=== PATIENT | female | born 1980 | race Caucasian/White ===

== ENCOUNTER → 2021-08-05 | Outpatient (CLI) | payer OTHER ==
--- NOTE | 2021-08-05 14:40 | Diagnostic Imaging Report ---
PROCEDURE: Pelvic comp/transvaginal sonogram. TECHNIQUE: Complete transabdominal and transvaginal pelvic ultrasound was performed. In addition, limited pelvic Doppler was performed. INDICATION: Abnormal uterine bleeding. Uterus is anteverted measuring 9.4 x 5.3 x 6.1 cm. Endometrium is 9 mm in thickness. There is some endometrial heterogeneity with some mild blood flow present but no discrete mass is detected. The right ovary measures 4.4 x 2.5 x 2.8 cm and left ovary measures 3.1 x 2.1 x 2.5 cm. Right ovary does contain a 2.8 cm cyst. Left ovary contains a 1.6 cm cyst. There is blood flow to both ovaries. No adnexal mass or free fluid is seen. IMPRESSION: 1. Mildly heterogeneous and thickened endometrium. 2. Bilateral ovarian cysts. Dictated by: Dictated on workstation # [id number]
== END ==
LOC: RAD 11:40
PROVIDERS: ATTEND Obstetrics & Gynecology
DX: N83.202 Unspecified ovarian cyst, left side (principal); N83.201 Unspecified ovarian cyst, right side; R93.89 Abnormal findings on diagnostic imaging of other specified body structures
CPT/HCPCS: 76830; 76856

== ENCOUNTER 2021-08-25 05:37 | Outpatient (CLI) | payer OTHER ==
[~2021-08-25] VITALS: Ht 157.5 cm; Wt 95.5 kg
[2021-08-26] MEDS ORDERED: ATOR20TA66 PO (12:50)
[2021-08-26] MEDS ORDERED: FURO20TA4 PO (12:50)
[2021-08-26] MEDS ORDERED: LEVO25CA4 PO (12:50)
[2021-08-26] MEDS ORDERED: LISI10TA25 PO (12:50)
[2021-08-26] MEDS ORDERED: IVAB5TAB PO (12:50)
[2021-08-26] MEDS ORDERED: FAMO20TA3 PO (12:50)
== END 2021-08-26 13:00 | disposition home or self-care (01) ==
LOC: PREOP 05:37
PROVIDERS: ATTEND Obstetrics & Gynecology
DX: Z01.818 Encounter for other preprocedural examination (principal)

== ENCOUNTER 2021-09-01 07:15 | Day surgery (SDC) | payer OTHER ==
[2021-09-01] VITALS (10 sets, daily range): BP systolic 104–122; BP diastolic 63–78
[~2021-09-01] VITALS: Ht 157.5 cm; Wt 95.5 kg
[~2021-09-01 07:15] MED LIST: ATOR20TA66 PO; FAMO20TA3 PO; FURO20TA4 PO; IVAB5TAB PO; LEVO25CA4 PO; LISI10TA25 PO
[2021-09-01] MEDS ORDERED: BUPIVACAINE 0.25% 30 ML (SENSORCAINE) VIAL ONE (07:25)
[2021-09-01] MEDS ORDERED: SEVOFLURANE (ULTANE) 15 ML INHAL SOLN ONE ×2 (07:53→09:02)
[2021-09-01] MEDS ORDERED: ONDANSETRON 4 MG/2 ML (SDV) Z0FRAN ONE (07:53)
[2021-09-01] MEDS ORDERED: proPOfol 200 MG/20 ML (DIPRIVAN) VIAL IV ONE (07:53)
[2021-09-01] MEDS ORDERED: MIDAZOLAM 2 MG/2 ML (VERSED) VIAL ONE (07:53)
[2021-09-01] MEDS ORDERED: fentaNYL INJ 100 MCG/2 ML AMP ONE (07:53)
[2021-09-01] MEDS ORDERED: LIDOCAINE PF 2% 5 ML (XYLOCAINE) VIAL ONE (07:53)
[2021-09-01] MEDS: LACTATED RINGERS 1,000 ML IV PRN ×2 (08:15→08:57)
[2021-09-01 08:30] LABS: BASOPHILS # (AUTO) 0.1 10^3/uL (0.0-0.1); BASOPHILS % (AUTO) 1 % (0-10); EOSINOPHILS # (AUTO) 0.2 10^3/uL (0.0-0.3); EOSINOPHILS % (AUTO) 3 % (0-10); HEMATOCRIT 37 % (35-52); HEMOGLOBIN 12.4 g/dL (11.5-16.0); LYMPHOCYTES # (AUTO) 2.1 10^3/uL (1.0-4.0); LYMPHOCYTES % (AUTO) 29 % (12-44); MEAN CORPUSCULAR HEMOGLOBIN 28 pg (25-34); MEAN CORPUSCULAR HGB CONC 33 g/dL (32-36); MEAN CORPUSCULAR VOLUME 85 fL (80-99); MEAN PLATELET VOLUME 9.4 fL (9.0-12.2); MONOCYTES # (AUTO) 0.7 10^3/uL (0.0-1.0); MONOCYTES % (AUTO) 9 % (0-12); NEUTROPHILS # (AUTO) 4.2 10^3/uL (1.8-7.8); NEUTROPHILS % (AUTO) 58 % (42-75); PLATELET COUNT 298 10^3/uL (130-400); WHITE BLOOD COUNT 7.2 10^3/uL (4.3-11.0)
--- NOTE | 2021-09-01 08:50 | Progress Note-Pre Operative ---
Pre-Operative Progress Note H&P Reviewed The H&P was reviewed, patient examined and no changes noted. Date Seen by Provider: Sep 01, 2021 Time Seen by Provider: 08:35 Date H&P Reviewed: Sep 01, 2021 Time H&P Reviewed: 08:35 Pre-Operative Diagnosis: AUB, Thickened Endometrium BAY LOVELL DO Sep 01, 2021 08:50
--- NOTE | 2021-09-01 08:51 | Discharge Inst-Women's Service ---
Discharge Inst-Women's Serv Depart Medication/Instructions New, Converted or Re-Newed RX: Transmitted to Pharmacy Problems Reviewed?: Yes Consults/Follow Up Additional Follow Up: Yes Orders/Referrals Dr. Lovell in 7-10 days Activity Activity: Activity as Tolerated Driving Instructions: No Driving for 1 Week NO SMOKING: NO SMOKING Nothing Inside Vagina: No Douching, No [place], No Tampons Diet Discharge Diet: No Restrictions Symptoms to Report to : Bleeding Excessive, Pain Increased, Fever Over 101 Degrees F, Vaginal Bleeding Increase, Questions/Concerns For Any Problems or Questions: Contact Your Physician BAY LOVELL DO Sep 01, 2021 08:51
[2021-09-01] MEDS ORDERED: ACHD5005 PO (08:52)
[2021-09-01] MEDS ORDERED: IBUP-1773 PO (08:52)
[2021-09-01] MEDS ORDERED: ONDANSETRON 4 MG/2 ML (SDV) Z0FRAN IVP PRN ×2 (09:00→09:15)
[2021-09-01] MEDS ORDERED: D5 LR IV SOLUTION 1,000 ML IV SCH (09:00)
[2021-09-01] MEDS ORDERED: KETOROLAC 30 MG/ML VIAL IVP ONE (09:00)
[2021-09-01] MEDS ORDERED: HYDROcodone/APAP 5 MG/325 MG (LORTAB) TAB PO PRN (09:00)
[2021-09-01] MEDS ORDERED: KETOROLAC 30 MG/ML VIAL IVP PRN (09:00)
--- NOTE | 2021-09-01 09:12 | Anesthesia-General Post-Op ---
General Patient Condition Mental Status/LOC: Same as Preop Cardiovascular: Satisfactory Nausea/Vomiting: Absent Respiratory: Satisfactory Pain: Controlled Complications: Absent Post Op Complications Complications None Follow Up Care/Instructions Patient Instructions None needed. Anesthesia/Patient Condition Patient Condition Patient is doing well, no complaints, stable vital signs, no apparent adverse anesthesia problems. No complications reported per nursing. MARCUS OLSON CRNA Sep 01, 2021 09:12
[2021-09-01] MEDS ORDERED: morphine INJ 10 MG/ML 1ML (SYR OR VIAL) IVP ONE (09:15)
[2021-09-01] MEDS ORDERED: MEPERIDINE (DEMEROL) INJ 50 MG/ML IVP ONE (09:15)
[2021-09-01] MEDS ORDERED: fentaNYL INJ 100 MCG/2 ML AMP IVP ONE (09:15)
--- NOTE | 2021-09-01 16:09 | OPERATIVE REPORT ---
DATE OF SERVICE: PREOPERATIVE DIAGNOSES: 1. A 41-year-old female with abnormal uterine bleeding. 2. Thickened endometrium on ultrasound. POSTOPERATIVE DIAGNOSES: 1. A 41-year-old female with abnormal uterine bleeding. 2. Thickened endometrium on ultrasound. PROCEDURE: D and C. SURGEON: Bay Lovell DO ANESTHESIA: LMA general. ESTIMATED BLOOD LOSS: Minimal. URINE OUTPUT: 200 mL clear drained at start of the procedure. FLUIDS: 1000 mL lactated Ringer's solution. FINDINGS: Grossly normal appearing external female genitalia. A copious amount of endometrial tissue. SPECIMEN SENT: Endometrial curettings. INDICATIONS FOR PROCEDURE: This 40-year-old female consulted to me for a thickened endometrium and heavy periods that she has been having. I discussed with the patient need for endometrial sampling due to her body habitus and age greater than 40. Risks of the procedure were discussed with the patient in detail. After all of her questions were answered, consent was obtained in the preoperative area, the patient was taken to the operating room. OPERATIVE REPORT IN DETAIL: Once in the operating room, anesthesia was found to be adequate, placed in dorsal lithotomy position, prepped and draped in normal sterile fashion. Timeout was performed. A weighted speculum inserted into the patient's vagina. Straight catheterization was performed. A right angle retractor was utilized. Cervix was grasped at 12 o'clock position using a long Allis clamp. I then performed paracervical block at 3 and 9 o'clock positions on the cervix. Care was taken to aspirate for injecting 5 mL of 0.25% Marcaine injected into each site. I then gently sounded the uterine cavity that was found to be approximately 9 cm. I then gently dilated the cervix using Hanks dilators; maximum dilatation approximately 1 cm, at which point I performed a methodical curettage throughout the entire endometrial cavity collecting all the endometrial tissue and sending as endometrial curettings. After gentle uterine cry is appreciated on all surfaces, I removed all the instruments from the patient's vagina. Bleeding is not noted from the cervix. The patient tolerated the procedure well and sent to recovery area in stable condition. Lap and sponge counts were correct at the end of the procedure. Instrument counts correct as well. Job ID: [id number] DocumentID: [id number] Dictated Date: 09/01/2021 09:31:43 Agricultural Consultant Date: 09/01/2021 16:08:15 Dictated By: BAY LOVELL DO
== END 2021-09-01 11:25 | disposition home or self-care (01) ==
LOC: SDC 07:15
PROVIDERS: ATTEND Obstetrics & Gynecology
DX: N84.0 Polyp of corpus uteri (principal); I10 Essential (primary) hypertension; E02 Subclinical iodine-deficiency hypothyroidism; I48.91 Unspecified atrial fibrillation; E66.9 Obesity, unspecified; Z68.38 Body mass index [BMI] 38.0-38.9, adult; Z79.899 Other long term (current) drug therapy; Z79.890 Hormone replacement therapy; Z98.51 Tubal ligation status
CPT/HCPCS: 36415; 84703; 85025; 86850; 86900; 86901; 87081; 88305

== ENCOUNTER 2022-01-28 05:33 | Outpatient (CLI) | payer OTHER ==
[~2022-01-28] VITALS: Ht 157.5 cm; Wt 90.0 kg
[~2022-01-28 05:33] MED LIST changes: +ACHD5005 PO; +IBUP-1773 PO
[2022-01-28] MEDS ORDERED: MULT-974 PO (12:05)
[2022-01-28] MEDS ORDERED: CETI10CA PO (12:05)
== END 2022-01-28 12:15 | disposition home or self-care (01) ==
LOC: PREOP 05:33
PROVIDERS: ATTEND Obstetrics & Gynecology
DX: Z01.818 Encounter for other preprocedural examination (principal)

== ENCOUNTER 2022-02-02 05:49 | Day surgery (SDC) | payer OTHER ==
[~2022-02-02] VITALS: Ht 157 cm; Wt 90.0 kg
[2022-02-02] VITALS (12 sets, daily range): BP systolic 105–147; BP diastolic 55–95
[~2022-02-02 05:49] MED LIST changes: +CETI10CA PO; +MULT-974 PO
[2022-02-02] MEDS ORDERED: metroNIDAZOLE 500MG/100ML IVPB 100 ML IV ONE (06:15)
[2022-02-02] MEDS ORDERED: ceFAZolin 2 GM IV Premixed 50 ML IV ONE (06:15)
[2022-02-02] MEDS ORDERED: BUPIVACAINE 0.25% 10 ML (SENSORCAINE) VIAL ONE (06:45)
[2022-02-02] MEDS ORDERED: SEVOFLURANE (ULTANE) 15 ML INHAL SOLN ONE (06:50)
[2022-02-02] MEDS ORDERED: proPOfol 200 MG/20 ML (DIPRIVAN) VIAL IV ONE (06:50)
[2022-02-02] MEDS ORDERED: ROCURONIUM 50 MG/5 ML (ZEMURON) VIAL IV ONE (06:50)
[2022-02-02] MEDS ORDERED: LIDOCAINE PF 2% 5 ML (XYLOCAINE) VIAL ONE (06:50)
[2022-02-02] MEDS ORDERED: ONDANSETRON 4 MG/2 ML (SDV) Z0FRAN ONE (06:50)
[2022-02-02] MEDS ORDERED: fentaNYL INJ 100 MCG/2 ML AMP ONE (06:51)
[2022-02-02] MEDS ORDERED: MIDAZOLAM 2 MG/2 ML (VERSED) VIAL ONE (06:51)
[2022-02-02 06:57] LABS: HEMOGLOBIN 13.6 g/dL (11.5-16.0); LYMPHOCYTES % (AUTO) 29 % (12-44)
[2022-02-02 06:58] LABS: BASOPHILS # (AUTO) 0.1 10^3/uL (0.0-0.1); BASOPHILS % (AUTO) 1 % (0-10); EOSINOPHILS % (AUTO) 0 % (0-10); HEMATOCRIT 40 % (35-52); LYMPHOCYTES # (AUTO) 2.1 10^3/uL (1.0-4.0); MEAN CORPUSCULAR HEMOGLOBIN 28 pg (25-34); MEAN CORPUSCULAR HGB CONC 34 g/dL (32-36); MEAN CORPUSCULAR VOLUME 84 fL (80-99); MEAN PLATELET VOLUME 9.8 fL (9.0-12.2); MONOCYTES # (AUTO) 0.6 10^3/uL (0.0-1.0); MONOCYTES % (AUTO) 8 % (0-12); NEUTROPHILS # (AUTO) 4.5 10^3/uL (1.8-7.8); NEUTROPHILS % (AUTO) 62 % (42-75); PLATELET COUNT 341 10^3/uL (130-400); WHITE BLOOD COUNT 7.3 10^3/uL (4.3-11.0)
[2022-02-02] MEDS: LACTATED RINGERS 1,000 ML IV PRN ×2 (07:10→08:50)
--- NOTE | 2022-02-02 07:27 | Progress Note-Pre Operative ---
Pre-Operative Progress Note H&P Reviewed The H&P was reviewed, patient examined and no changes noted. Date Seen by Provider: February 02, 2022 Time Seen by Provider: 07:25 Date H&P Reviewed: February 02, 2022 Time H&P Reviewed: 07:25 Pre-Operative Diagnosis: AUB, Menorrhagia BAY LOVELL DO February 02, 2022 07:27
[2022-02-02] MEDS ORDERED: ZOLPIDEM 5 MG (AMBIEN) TAB PO PRN (07:30)
[2022-02-02] MEDS ORDERED: ANTACID SUSP 30 ML UDC (MYLANTA) PO PRN (07:30)
[2022-02-02] MEDS ORDERED: SIMETHICONE 80 MG (MYLICON) CHEW PO PRN (07:30)
[2022-02-02] MEDS ORDERED: CHLORASEPTIC LOZENGE MM PRN (07:30)
[2022-02-02] MEDS ORDERED: DOCUSATE SODIUM 100 MG (COLACE) CAP PO PRN (07:30)
[2022-02-02] MEDS ORDERED: NALOXONE 0.4 MG/ML 1 ML (NARCAN) VIAL IV PRN (07:30)
[2022-02-02] MEDS ORDERED: ONDANSETRON 4 MG/2 ML (SDV) Z0FRAN IV PRN (07:30)
--- NOTE | 2022-02-02 07:30 | Discharge Inst-Women's Service ---
Discharge Inst-Women's Serv Depart Medication/Instructions New, Converted or Re-Newed RX: Transmitted to Pharmacy Problems Reviewed?: Yes Consults/Follow Up Additional Follow Up: Yes Activity Activity: Activity as Tolerated Driving Instructions: No Driving for 1 Week NO SMOKING: NO SMOKING Nothing Inside Vagina: No Douching, No [place], No Tampons Diet Discharge Diet: No Restrictions Symptoms to Report to : Bleeding Excessive, Pain Increased, Fever Over 101 Degrees F, Vaginal Bleeding Increase, Questions/Concerns For Any Problems or Questions: Contact Your Physician Skin/Wound Care Infection Signs and Symptoms: Increased Redness, Foul Odor of Wound, Increased Drainage, Skin Itchy or Has a Rash, Increased Swelling, Temperature Above 101 F Operative Area Clean and Dry: Keep Incision Clean/Dry Stitches/[place]/Dermabond: Dermabond, Care of Stitches Bathing Instructions: BAY Barraza DO February 02, 2022 07:30
[2022-02-02] MEDS ORDERED: IBUP-1773 PO (07:31)
[2022-02-02] MEDS ORDERED: HYDR-34 PO (07:31)
[2022-02-02] MEDS ORDERED: DOCU100C37 PO (07:31)
--- NOTE | 2022-02-02 09:12 | Anesthesia-General Post-Op ---
General Patient Condition Mental Status/LOC: Same as Preop Cardiovascular: Satisfactory Nausea/Vomiting: Absent Respiratory: Satisfactory Pain: Controlled Complications: Absent Post Op Complications Complications None Follow Up Care/Instructions Patient Instructions None needed. Anesthesia/Patient Condition Patient Condition Patient is doing well, no complaints, stable vital signs, no apparent adverse anesthesia problems. No complications reported per nursing. MARLIN RODRIGES CRNA February 02, 2022 09:12
[2022-02-02] MEDS ORDERED: MEPERIDINE (DEMEROL) INJ 50 MG/ML IVP ONE (09:15)
[2022-02-02] MEDS ORDERED: ONDANSETRON 4 MG/2 ML (SDV) Z0FRAN IVP PRN (09:15)
[2022-02-02] MEDS ORDERED: PROMETHAZINE INJ 25 MG/ML (PHENERGAN) AMP IVP ONE (09:15)
[2022-02-02] MEDS ORDERED: morphine INJ 10 MG/ML 1ML (SYR OR VIAL) IVP ONE (09:15)
[2022-02-02] MEDS ORDERED: KETOROLAC 30 MG/ML VIAL ONE (09:24)
[2022-02-02] MEDS ORDERED: morphine INJ 10 MG/ML 1ML (SYR OR VIAL) ONE (09:24)
[2022-02-02] MEDS: KETOROLAC 30 MG/ML VIAL IVP PRN ×2 (09:25→15:04)
[2022-02-02] MEDS: LACTATED RINGERS 1,000 ML IV SCH ×2 (09:40→12:34)
[2022-02-02] MEDS ORDERED: HYDROcodone/APAP 7.5 MG/325 MG (LORTAB, LORCET PLUS) TABLET PO ONE (10:32)
[2022-02-02] MEDS: HYDROcodone/APAP 7.5 MG/325 MG (LORTAB, LORCET PLUS) TABLET PO PRN ×2 (10:36→16:13)
[2022-02-02] MEDS ORDERED: CEPACOL SORE THROAT-COUGH LOZENGE PO PRN (12:15)
--- NOTE | 2022-02-02 15:20 | OPERATIVE REPORT ---
DATE OF SERVICE: PREOPERATIVE DIAGNOSES: 1. A 41-year-old female with abnormal uterine bleeding. 2. Menorrhagia. POSTOPERATIVE DIAGNOSES: 1. A 41-year-old female with abnormal uterine bleeding. 2. Menorrhagia. PROCEDURE: Robotic-assisted total laparoscopic hysterectomy with bilateral salpingectomy. SURGEON: Justin Lovell DO KILN FEEDER: Rehana Harrison DNP, was necessary for manipulation and retraction throughout the procedure. ANESTHESIA: General endotracheal. ESTIMATED BLOOD LOSS: Minimal. URINE OUTPUT: 30 mL clear at the end of the procedure. FLUIDS: 1200 mL lactated Ringer's solution. FINDINGS: A hyperemic-appearing uterus with some subserosal fibroids that were visualized. Grossly normal appearing bilateral ovaries and fallopian tubes with evidence of prior tubal ligation. The right ovary did have 2 functional cyst on it noted. SPECIMEN SENT: Uterus, bilateral fallopian tubes. INDICATIONS FOR PROCEDURE: This is a 41-year-old female is a patient who had sought care in my office for abnormal bleeding. She underwent D and C two to three months prior with no resolution in her symptoms. Due to conservative management options being exhausted at this point, the patient was wishing to proceed with hysterectomy as she has become frustrated with her bleeding patterns and cramping. Risks of the procedure were discussed with the patient in detail including risk of bleeding, infection, damage to surrounding structures including, but not limited to bowel, bladder, ureter, kidneys, possible need for reoperation, possible laparotomy, recovery timeframe, risk from anesthesia and even . After everything was discussed with the patient in detail, she was agreeable to proceed. Consent was obtained, the patient was taken to the operating room. OPERATIVE REPORT IN DETAIL: Once in the operating room, general anesthesia was found to be adequate. She was placed in dorsal lithotomy position, prepped and draped in normal sterile fashion. A timeout was performed. Campos catheter was placed using sterile technique. A weighted speculum inserted to the patient's vagina, which allows me to place an 0 Vicryl suture through the anterior lip of the cervix. The suture was then used as my retraction point. I then gently sound the uterine cavity, depth was found to be 8 cm. I selected a Allie uterine manipulator with an 8 cm tip and a 3.5 cm colpotomy ring. The manipulator tip was advanced into the uterus where the balloon was deployed and the colpotomy ring was advanced around the vaginal fornix. I then removed all the other instruments from the patient's vagina, performed change of gloves, obtained my attention to the abdomen, where subcostally at the midclavicular line on the left, I introduced the Veress needle until intraperitoneal placement was confirmed using a saline drop test. I then proceeded with insufflation using CO2 gas and opening pressure of 3 mmHg was noted, proceeded to maximum pressure of 15 mmHg, at which point I infiltrated the infraumbilical area using 0.25% Marcaine to make an 8 mm incision with a knife and direct a blunt laparoscopic da Elmer camera trocar through the incision until intraperitoneal placement was confirmed using the da Elmer laparoscope. There was no evidence of damage from entry site. Brief scan of the upper abdominal anatomy appears to be grossly normal. There was no evidence of damage upon my Veress entry site and the Veress was removed. I then had the patient placed in steep Trendelenburg and made visualize all my pelvic anatomy as defined in my findings above. I placed two lateral trocars using both 8 mm trocars placed in similar fashion. There approximately 8 to 10 cm lateral to my infraumbilical trocar. Once both these trocars were in place, I brought in the da Elmer robot and docked in appropriate fashion placing the SynchroSeal device in left hand and monopolar obdulia in the right hand. I performed the following dissection bilaterally starting at the uteroovarian ligament, I sealed and transected using the SynchroSeal device. I then created window in the mesosalpinx and took this laterally amputating the fallopian tube from its surrounding blood supply. I then grasped the round ligament, which I sealed and transected using the SynchroSeal device. I was then able to grasp the entire broad ligament, which I sealed and transected using the SynchroSeal device down to the level of the lower uterine segment, at which point I the anterior and posterior leaflets of the broad ligament, anterior leaflet was taken around the anterior vaginal fornix. The posterior leaflet was taken around the posterior vaginal fornix. This allows me to skeletonize the uterine vessels laterally, which I sealed and transected using the SynchroSeal device. I then created a colpotomy at 12 o'clock position using monopolar obdulia and took this circumferentially around the vaginal fornix amputating the cervix away from the vagina. The entire specimen was then removed through the vagina. I then closed the lateral vaginal apices of the vaginal cuff using 2-0 Vicryl suture in a [id number] fashion colposuspending the uterosacral ligaments. I then closed the remainder of the vaginal cuff using 2-0 V-Loc in a running fashion, after which there was no active bleeding noted from any of my dissection planes. I then undocked the da Elmer robot and proceeded with remainder of the case laparoscopically where I copiously irrigated the pelvis using normal saline. Once again, there was no active bleeding noted from any of my dissection planes. I placed Surgiflo hemostatic agent over all my planes of dissection. I had the patient taken out of steep Trendelenburg where I released insufflation and removed the lateral trocars under direct visualization of the laparoscope and infraumbilical trocars left in place to release the remainder of the insufflation and to introduce 10 mL of 0.25% Marcaine into peritoneal cavity for postoperative pain management. I then removed this trocar as well. The skin reapproximated using 4-0 Monocryl interrupted subcuticular stitches. Dermabond was applied to incision and sterile dressings with adhesive white tape. Campos catheter was left in place. The patient tolerated the procedure well and sent to recovery area in stable condition. Lap and sponge counts were correct at the end of the procedure. Instrument counts correct as well. Two grams of Ancef and 500 mg of Flagyl were given preoperatively for infection prophylaxis. Job ID: [id number] DocumentID: [id number] Dictated Date: 02/02/2022 09:57:12 Photographer News Date: 02/02/2022 15:20:12 Dictated By: JUSTIN LOVELL DO
[2022-02-03] MEDS ORDERED: IBUPROFEN 600 MG (MOTRIN) TAB PO SCH (10:00)
== END 2022-02-02 16:50 | disposition home or self-care (01) ==
LOC: SDC 05:49 → WS 10:04 → SDC 16:50
PROVIDERS: ATTEND Obstetrics & Gynecology
DX: D25.2 Subserosal leiomyoma of uterus (principal); D25.1 Intramural leiomyoma of uterus; N84.0 Polyp of corpus uteri; N80.0 Endometriosis of uterus; N83.8 Other noninflammatory disorders of ovary, fallopian tube and broad ligament; E66.9 Obesity, unspecified; Z68.36 Body mass index [BMI] 36.0-36.9, adult
CPT/HCPCS: 36415; 84703; 85025; 86850; 86900; 86901; 87081; 94664